=== PATIENT | male | born 1945 | race Caucasian/White ===

== ENCOUNTER 2016-10-11 11:35 | Emergency (ER) | payer MEDICARE ==
[2016-10-11 13:30] VITALS: BP 138/76
--- NOTE | 2016-10-11 13:51 | UC ---
Knee Pain HPI - HPI Summary HPI Summary: complaint of pain in right knee that started 2 days ago yesterday pain increased yesterday constant aching pain at rest and with movement this morning the pain and redness have lessened but still hurts took some ibuprofen with some relief- 800 mg PO Q8 hours dx with gout 3 ywearsa go - has flare up 1-2x year denies fever - History of Current Complaint Chief Complaint: UCLowerExtremity Stated Complaint: RIGHT KNEE PAIN (GOUT) Time Seen by Provider: 10/11/16 13:44 Hx Obtained From: Patient - Allergies/Home Medications Allergies/Adverse Reactions: Allergies Allergy/AdvReac Type Severity Reaction Status Date / Time Codeine AdvReac Mild Nausea Verified 11/10/13 09:14 Home Medications: Home Medications Allopurinol [Zyloprim] 300 mg PO DAILY 10/11/16 [History Confirmed 10/11/16] Atorvastatin* [Lipitor*] 80 mg PO 1700 10/11/16 [History Confirmed 10/11/16] Flunisolide NASAL (NF) [Nasalide NASAL (NF)] 0.025 % NA DAILY 10/11/16 [History Confirmed 10/11/16] Magnesium [Magnesium] 400 mg PO DAILY 10/11/16 [History Confirmed 10/11/16] Pantoprazole Sodium 40 mg PO DAILY 10/11/16 [History Confirmed 10/11/16] Sotalol TAB* [Betapace TAB*] 80 mg PO BID 10/11/16 [History Confirmed 10/11/16] Warfarin TAB(*) [Coumadin TAB(*)] 5 mg PO 1700 10/11/16 [History Confirmed 10/11] PMH/Surg Hx/FS Hx/Imm Hx Previously Healthy: Yes Endocrine History Of: Reports: Dyslipidemia Denies: Diabetes, Thyroid Disease, Hyperthyroidism, Hypothyroidism Cardiovascular History Of: Reports: Cardiac Disorders - Stent placed 5-6 yrs ago , Hypertension Denies: Pacemaker/ICD, Myocardial Infarction, Congestive Heart Failure, Atrial Fibrillation, Deep Vein Thrombosis, Bleeding Disorders Respiratory History Of: Reports: COPD Denies: Asthma, Bronchitis, Pneumonia, Pulmonary Embolism GI/ History Of: Denies: Gastroesophageal Reflux, Ulcer, Gastrointestinal Bleed, Gall Bladder Disease, Kidney Stones, Diverticulitis, Renal Disease, Urosepsis Neurological History Of: Denies: TIA, CVA, Dementia, Seizures, Migraine Psychological History Of: Denies: Anxiety, Depression, Bipolar Disorder, Schizophrenia, Post Traumatic Stress Disorder Cancer History Of: Denies: Lung Cancer, Colorectal Cancer, Breast Cancer, Prostate Cancer, Cervical Cancer Other History Of: Hepatitis C - He will be starting treatment later this month. Negative For: HIV, Hepatitis B, Anticoagulant Therapy - Surgical History Surgical History: Yes Surgery Procedure, Year, and Place: 2 cardiac stents 2011 - Family History Known Family History: Positive: None Negative: Cardiac Disease, Hypertension, Diabetes - Social History Lives: With Family Alcohol Use: Occasionally Substance Use Type: None Smoking Status (MU): Former Smoker Amount Used/How Often: Smoker for 40 year up to 1ppd. Review of Systems Constitutional: Negative Skin: Negative Eyes: Negative ENT: Negative Respiratory: Negative Cardiovascular: Negative Gastrointestinal: Negative Genitourinary: Negative Motor: Negative Neurovascular: Negative Musculoskeletal: Other: - left knee pain Neurological: Negative Psychological: Negative All Other Systems Reviewed And Are Negative: Yes Physical Exam Triage Information Reviewed: Yes Appearance: No Pain Distress, Thin Vital Signs: Initial Vital Signs Temp 98.3 F 10/11/16 13:21 Pulse 77 10/11/16 13:21 Resp 16 10/11/16 13:21 BP 138/76 10/11/16 13:21 Pulse Ox 98 10/11/16 13:21 Vital Signs Reviewed: Yes Eyes: Positive: Conjunctiva Clear ENT: Positive: Pharynx normal, TMs normal Neck: Positive: Supple Respiratory: Positive: Lungs clear, Normal breath sounds, No respiratory distress Cardiovascular: Positive: RRR, No Murmur, Pulses Normal Abdomen Description: Positive: Nontender, Soft Bowel Sounds: Positive: Present Musculoskeletal: Positive: Other: - Left knee- above patella and anterior side of knee with some erythema and warmth- no open areas no instabiltiy of joint no edema Neurological: Positive: Alert Psychological Exam: Normal Skin Exam: Normal Knee Pain Course/Dx - Course Course Of Treatment: exam completed -established dx of gout- afebrile, no trauma or instability. acute attack will treat with colchicine d/t warfarin therapy. followup with PCP in 2 days or if no improvement - Differential Dx/Diagnosis Differential Diagnosis/HQI/PQRI: Gout, Infection, Sprain Provider Diagnoses: gout right knee Discharge - Discharge Plan Condition: Stable Disposition: HOME Prescriptions: Colchicine* [Colcrys*] 0.6 mg PO DAILY #7 tab Patient Education Materials: Gout (ED), Low Purine Diet (ED) Referrals: Candy Rivas MD [Primary Care Provider] - Additional Instructions: Start medication as directed Please review your discharge instructions. If your symptoms do not improve please call your primary care provider or return to urgent care
== END 2016-10-11 14:18 | disposition home or self-care (01) ==
LOC: UCCORT 11:35
DX: M10.9 Gout, unspecified (principal); I10 Essential (primary) hypertension; E78.5 Hyperlipidemia, unspecified; J44.9 Chronic obstructive pulmonary disease, unspecified; Z88.5 Allergy status to narcotic agent; Z87.891 Personal history of nicotine dependence
CPT/HCPCS: 99212; G0463

== ENCOUNTER 2016-10-30 10:17 | Emergency (ER) | payer MEDICARE ==
[2016-10-30 12:58] VITALS: BP 131/73
--- NOTE | 2016-10-30 13:22 | UC ---
Respiratory Complaint HPI - HPI Summary HPI Summary: pt c/o worsening cough, nasal congestion, chills and fatigue X 1 week. Has history of COPD - History of Current Complaint Chief Complaint: UCRespiratory Stated Complaint: COUGH,CONGESTION Time Seen by Provider: 10/30/16 12:50 Hx Obtained From: Patient Onset/Duration: Gradual Onset, Lasting Days Timing: Constant Severity Initially: Mild Severity Currently: Mild Pain Intensity: 0 Pain Scale Used: 0-10 Numeric Character: Cough: Productive - in morning Aggravating Factors: Deep Breaths, Recumbent Position Associated Signs And Symptoms: Positive: URI, Nasal Congestion - Risk Factors Pseudomonas Risk Factors: Chronic Lung Disease - Allergies/Home Medications Allergies/Adverse Reactions: Allergies Allergy/AdvReac Type Severity Reaction Status Date / Time Codeine AdvReac Mild Nausea Verified 10/30/16 12:50 PMH/Surg Hx/FS Hx/Imm Hx Previously Healthy: No - see pmh Endocrine History Of: Reports: Dyslipidemia Denies: Diabetes, Thyroid Disease, Hyperthyroidism, Hypothyroidism Cardiovascular History Of: Reports: Cardiac Disorders - Stent placed 5-6 yrs ago , Hypertension Denies: Pacemaker/ICD, Myocardial Infarction, Congestive Heart Failure, Atrial Fibrillation, Deep Vein Thrombosis, Bleeding Disorders Respiratory History Of: Reports: COPD Denies: Asthma, Bronchitis, Pneumonia, Pulmonary Embolism GI/ History Of: Denies: Gastroesophageal Reflux, Ulcer, Gastrointestinal Bleed, Gall Bladder Disease, Kidney Stones, Diverticulitis, Renal Disease, Urosepsis Neurological History Of: Denies: TIA, CVA, Dementia, Seizures, Migraine Psychological History Of: Denies: Anxiety, Depression, Bipolar Disorder, Schizophrenia, Post Traumatic Stress Disorder Cancer History Of: Denies: Lung Cancer, Colorectal Cancer, Breast Cancer, Prostate Cancer, Cervical Cancer Other History Of: Hepatitis C - He will be starting treatment later this month. Negative For: HIV, Hepatitis B, Anticoagulant Therapy - Surgical History Surgical History: Yes Surgery Procedure, Year, and Place: 2 cardiac stents 2011 - Family History Known Family History: Negative: Cardiac Disease, Hypertension, Diabetes - Social History Lives: With Family Alcohol Use: Occasionally Substance Use Type: None Smoking Status (MU): Former Smoker Amount Used/How Often: Smoker for 40 year up to 1ppd. When Did the Patient Quit Smoking/Using Tobacco: 1999 - Immunization History Most Recent Influenza Vaccination: 2016 Review of Systems Constitutional: Chills, Fatigue Skin: Negative Eyes: Negative ENT: Other - nasal congestion, pnd Respiratory: Cough Cardiovascular: Negative Gastrointestinal: Negative Genitourinary: Negative Motor: Negative Neurovascular: Negative Musculoskeletal: Negative Neurological: Negative Psychological: Negative All Other Systems Reviewed And Are Negative: Yes Physical Exam Triage Information Reviewed: Yes Appearance: Well-Appearing Vital Signs: Initial Vital Signs Temp 99.7 F 10/30/16 12:53 Pulse 101 10/30/16 12:53 Resp 20 10/30/16 12:53 BP 131/73 10/30/16 12:53 Pulse Ox 93 10/30/16 12:53 Vital Signs Reviewed: Yes ENT Exam: Other ENT: Positive: Nasal congestion Neck exam: Normal Respiratory Exam: Other Respiratory: Positive: Decreased breath sounds - bialtaeral bases Cardiovascular Exam: Normal Musculoskeletal Exam: Normal Neurological Exam: Normal Psychological Exam: Normal Skin Exam: Normal UC Diagnostic Evaluation - Laboratory O2 Sat by Pulse Oximetry: 93 Respiratory Course/Dx - Differential Dx/Diagnosis Differential Diagnosis/HQI/PQRI: Bronchitis, Influenza, Other - pneumonia Provider Diagnoses: bronchitis Discharge - Discharge Plan Condition: Stable Disposition: HOME Prescriptions: Azithromycin TAB* [Zithromax TAB (Z-BRODERICK) 250 mg #6 tabs] 2 tab PO .TODAY, THEN 1 DAILY #1 broderick predniSONE TAB* [Deltasone TAB*] 40 mg PO DAILY #8 tab Patient Education Materials: Acute Bronchitis (ED) Referrals: Candy Rivas MD [Primary Care Provider] -
== END 2016-10-30 13:15 | disposition home or self-care (01) ==
LOC: UCCORT 10:17
DX: J20.9 Acute bronchitis, unspecified (principal); R09.81 Nasal congestion; J44.9 Chronic obstructive pulmonary disease, unspecified; E78.5 Hyperlipidemia, unspecified; Z87.891 Personal history of nicotine dependence; Z88.5 Allergy status to narcotic agent
CPT/HCPCS: 99212; G0463

== ENCOUNTER 2017-08-24 17:14 | Emergency (ER) | payer MEDICARE ==
--- NOTE | 2017-08-24 18:25 | UC ---
Respiratory Complaint HPI - HPI Summary HPI Summary: 72 YEAR OLD MALE PRESENTS WITH SINUS CONGESTION AND COUGH. - History of Current Complaint Stated Complaint: COUGH/HEADACHE Time Seen by Provider: 08/24/17 18:24 Hx Obtained From: Patient Onset/Duration: Sudden Onset Severity Initially: Moderate Severity Currently: Moderate Pain Scale Used: 0-10 Numeric - 5 Associated Signs And Symptoms: Positive: Wheezing - Allergies/Home Medications Allergies/Adverse Reactions: Allergies Allergy/AdvReac Type Severity Reaction Status Date / Time Codeine AdvReac Mild Vomiting Verified 08/24/17 19:06 Home Medications: Home Medications Losartan TAB* [Cozaar TAB*] 50 mg PO DAILY 08/24/17 [History Confirmed 08/24/17] PMH/Surg Hx/FS Hx/Imm Hx Other History Of: Hepatitis C - He will be starting treatment later this month. Negative For: HIV, Hepatitis B, Anticoagulant Therapy - Surgical History Surgical History: Yes Surgery Procedure, Year, and Place: 2 cardiac stents 2011 - Family History Known Family History: Negative: Cardiac Disease, Hypertension, Diabetes - Social History Alcohol Use: Occasionally Substance Use Type: None Smoking Status (MU): Former Smoker Amount Used/How Often: Smoker for 40 year up to 1ppd. When Did the Patient Quit Smoking/Using Tobacco: 1999 - Immunization History Most Recent Influenza Vaccination: 2015 Review of Systems Constitutional: Negative Skin: Negative Eyes: Negative ENT: Negative Respiratory: Shortness Of Breath, Cough Cardiovascular: Negative Gastrointestinal: Negative Genitourinary: Negative Motor: Negative Neurovascular: Negative Musculoskeletal: Negative Neurological: Negative Psychological: Negative All Other Systems Reviewed And Are Negative: Yes Physical Exam Triage Information Reviewed: Yes Vital Signs Reviewed: Yes Eye Exam: Normal ENT: Positive: Pharyngeal erythema, Nasal congestion, Nasal drainage Dental Exam: Normal Neck exam: Normal Neck: Positive: 1 Respiratory: Positive: Rhonchi, Wheezing Cardiovascular Exam: Normal Abdominal Exam: Normal Musculoskeletal Exam: Normal Neurological Exam: Normal Psychological Exam: Normal Skin Exam: Normal Respiratory Course/Dx - Differential Dx/Diagnosis Provider Diagnoses: SINUSITIS. COUGH Discharge - Discharge Plan Condition: Stable Disposition: HOME Prescriptions: Amoxicillin/Clavulanate TAB* [Augmentin TAB 875*] 875 mg PO BID #20 tab Benzonatate CAP* [Tessalon 100 MG CAP*] 100 mg PO TID PRN #30 cap PRN Reason: Cough Guaifenesin-Codeine [Cheratussin AC] 1 teasp PO Q8H PRN #120 ml MDD 15 ml PRN Reason: Cough LoraTADine TAB(NF) [Claritin 10 MG TAB(NF)] 10 mg PO DAILY #30 tab Patient Education Materials: Sinusitis (ED), Acute Cough (ED) Referrals: Candy Rivas MD [Primary Care Provider] -
[2017-08-24 19:05] VITALS: BP 155/68
== END 2017-08-24 19:30 | disposition home or self-care (01) ==
LOC: UCCORT 17:14
DX: J32.9 Chronic sinusitis, unspecified (principal); R05 Cough; Z95.5 Presence of coronary angioplasty implant and graft; Z88.5 Allergy status to narcotic agent; Z87.891 Personal history of nicotine dependence
CPT/HCPCS: 99212; G0463

== ENCOUNTER 2018-09-09 10:10 | Emergency (ER) | payer MEDICARE ==
[2018-09-09 10:55] VITALS: BP 143/88
--- NOTE | 2018-09-09 11:16 | UC ---
Lower Extremity/Ankle HPI - HPI Summary HPI Summary: Left great toe pain for about two weeks. Hx of gout. This feels simmilar to prior. He had worsening swelling and this is improved now. No prior kidney disease. - History of Current Complaint Chief Complaint: UCLowerExtremity Stated Complaint: LEFT FOOT COMPLAINT Time Seen by Provider: 09/09/18 11:00 Hx Obtained From: Patient Onset/Duration: Gradual Onset, Lasting Weeks Severity Initially: Moderate Severity Currently: Moderate Pain Intensity: 5 Aggravating Factor(s): Standing, Ambulation Alleviating Factor(s): Rest Able to Bear Weight: Yes - Allergies/Home Medications Allergies/Adverse Reactions: Allergies Allergy/AdvReac Type Severity Reaction Status Date / Time codeine Allergy Mild Vomiting Verified 09/09/18 10:56 PMH/Surg Hx/FS Hx/Imm Hx Previously Healthy: No - Afib. gout. Prior records reviewed and no recent labs but gfr wnl 2013. Cardiovascular History: Atrial Fibrillation Other History Of: Hepatitis C - He will be starting treatment later this month. Negative For: HIV, Hepatitis B, Anticoagulant Therapy - Surgical History Surgical History: Yes Surgery Procedure, Year, and Place: 2 cardiac stents 2011; right wrist fxs - Family History Known Family History: Negative: Cardiac Disease, Hypertension, Diabetes - Social History Alcohol Use: Occasionally Substance Use Type: None Smoking Status (MU): Former Smoker Amount Used/How Often: Smoker for 40 year up to 1ppd. When Did the Patient Quit Smoking/Using Tobacco: 1999 - Immunization History Most Recent Influenza Vaccination: 2015 Review of Systems All Other Systems Reviewed And Are Negative: Yes Musculoskeletal: Positive: Arthralgia Is Patient Immunocompromised?: No Physical Exam Triage Information Reviewed: Yes Appearance: Well-Appearing, No Pain Distress, Well-Nourished Vital Signs: Initial Vital Signs Temp 96.8 F 09/09/18 10:49 Pulse 68 09/09/18 10:49 Resp 20 09/09/18 10:49 BP 143/88 09/09/18 10:49 Pulse Ox 95 09/09/18 10:49 Vital Signs Reviewed: Yes Eye Exam: Normal Eyes: Positive: Conjunctiva Clear ENT: Positive: Normal ENT inspection Neck: Positive: Supple. Negative: Nuchal Rigidity Respiratory: Positive: No respiratory distress, No accessory muscle use. Negative: Respiratory distress Cardiovascular: Positive: Brisk Capillary Refill Abdomen Description: Positive: No Organomegaly, Soft. Negative: Distended, Guarding Musculoskeletal Exam: Other - left great MTP and toe tenderness with some swelling. No streaking. Not hot but it is warm and pink. Neurological: Positive: Alert, Muscle Tone Normal. Negative: Fatigued Psychological: Positive: Age Appropriate Behavior Lower Extremity Course/Dx - Course Course Of Treatment: No signs of infection. he has been taking increased allopurinol lately but did not take it prophylactically. We explained the role of allopurinol as a daily preventative med. We will use only two colchicine and them steroids. We will avoid nsaids otherwise. - Differential Dx/Diagnosis Provider Diagnosis: Gout attack Discharge - Sign-Out/Discharge Documenting (check all that apply): Patient Departure All imaging exams completed and their final reports reviewed: No Studies - Discharge Plan Condition: Good Disposition: HOME Prescriptions: Colchicine* [Colcrys*] 0.6 mg PO Q4HR #2 tab methylPREDNISolone [Medrol] 4 mg PO .SEE BRODERICK INSTRUCTION #21 [email or web address] Patient Education Materials: Gout (ED) Referrals: Candy Rivas MD [Primary Care Provider] - If Needed - Billing Disposition and Condition Condition: GOOD Disposition: Home
== END 2018-09-09 11:21 | disposition home or self-care (01) ==
LOC: UCCORT 10:10
DX: M10.9 Gout, unspecified (principal); Z88.5 Allergy status to narcotic agent; Z87.891 Personal history of nicotine dependence
CPT/HCPCS: 99212; G0463

== ENCOUNTER 2018-09-27 11:30 | Emergency (ER) | payer MEDICARE ==
[2018-09-27 15:12] VITALS: BP 116/67
[2018-09-27] MEDS ORDERED: predniSONE TAB* 20 MG PO ONE (15:25)
--- NOTE | 2018-09-27 15:31 | UC ---
Lower Extremity/Ankle HPI - HPI Summary HPI Summary: The patient is a 73-year-old male has been dealing with gout in his left great toe intermittently for the past 7 weeks. States that last night it hurt to just have the sheet touches left great toe. Currently the pain is only about a 3 but at times it can go up to a 10. - History of Current Complaint Chief Complaint: UCLowerExtremity Stated Complaint: LEFT FOOT COMPLAINT Time Seen by Provider: 09/27/18 15:14 Hx Obtained From: Patient Onset/Duration: Gradual Onset, Lasting Weeks Severity Initially: Mild Severity Currently: Mild Pain Intensity: 3 Pain Scale Used: 0-10 Numeric Aggravating Factor(s): Standing, Ambulation Alleviating Factor(s): Rest Able to Bear Weight: Yes Feet (Multiple View): 1 - red/painful/tender - Allergies/Home Medications Allergies/Adverse Reactions: Allergies Allergy/AdvReac Type Severity Reaction Status Date / Time codeine Allergy Mild Vomiting Verified 09/27/18 15:06 PMH/Surg Hx/FS Hx/Imm Hx Previously Healthy: Yes Cardiovascular History: Cardiac Disease, Hypertension Respiratory History: COPD Other History Of: Hepatitis C - He will be starting treatment later this month. Negative For: HIV, Hepatitis B, Anticoagulant Therapy - Surgical History Surgical History: Yes Surgery Procedure, Year, and Place: 2 cardiac stents 2011; right wrist fxs - Family History Known Family History: Negative: Cardiac Disease, Hypertension, Diabetes - Social History Alcohol Use: Occasionally Substance Use Type: None Smoking Status (MU): Former Smoker Amount Used/How Often: Smoker for 40 year up to 1ppd. When Did the Patient Quit Smoking/Using Tobacco: 1999 - Immunization History Most Recent Influenza Vaccination: 2016 Review of Systems All Other Systems Reviewed And Are Negative: Yes Constitutional: Positive: Negative Skin: Positive: Negative Eyes: Positive: Negative ENT: Positive: Negative Respiratory: Positive: Negative Cardiovascular: Positive: Negative Gastrointestinal: Positive: Negative Genitourinary: Positive: Negative Motor: Positive: Negative Neurovascular: Positive: Negative Musculoskeletal: Positive: Arthralgia Neurological: Positive: Negative Psychological: Positive: Negative Physical Exam Triage Information Reviewed: Yes Appearance: Well-Appearing, No Pain Distress, Well-Nourished Vital Signs: Initial Vital Signs Temp 97 F 09/27/18 15:06 Pulse 59 09/27/18 15:06 Resp 16 09/27/18 15:06 BP 116/67 09/27/18 15:06 Pulse Ox 99 09/27/18 15:06 Vital Signs Reviewed: Yes Eyes: Positive: Conjunctiva Clear ENT: Positive: Hearing grossly normal, Uvula midline. Negative: Nasal congestion, Nasal drainage, Trismus, Muffled voice Neck: Positive: Supple Respiratory: Positive: Lungs clear, Normal breath sounds, No respiratory distress, No accessory muscle use Cardiovascular: Positive: RRR, No Murmur Musculoskeletal: Positive: Other: - see image Psychological Exam: Normal Skin Exam: Normal Lower Extremity Course/Dx - Differential Dx/Diagnosis Provider Diagnosis: Gout Discharge - Sign-Out/Discharge Documenting (check all that apply): Patient Departure All imaging exams completed and their final reports reviewed: No Studies - Discharge Plan Condition: Stable Disposition: HOME Prescriptions: predniSONE [Prednisone 20 MG TAB] 60 mg PO DAILY #6 tab Patient Education Materials: Low Purine Diet (ED), Gout (ED) Referrals: Candy Rivas MD [Primary Care Provider] - As Soon As Possible Additional Instructions: post op shoe see your MD early next week for recheck - Billing Disposition and Condition Condition: STABLE Disposition: Home
== END 2018-09-27 15:58 | disposition home or self-care (01) ==
LOC: UCCORT 11:30
DX: M10.9 Gout, unspecified (principal); I10 Essential (primary) hypertension; Z88.5 Allergy status to narcotic agent; Z87.891 Personal history of nicotine dependence
CPT/HCPCS: 99213; G0463; J7512

== ENCOUNTER 2019-09-24 09:34 | Emergency (ER) | payer MEDICARE ==
[2019-09-24 10:22] VITALS: BP 97/80
--- NOTE | 2019-09-24 10:40 | ED ---
Lower Extremity - HPI Summary HPI Summary: 74 yr old male with the complaint of left ankle pain, and right heel pain. The patient has a history of gout arthritis. 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 He presents here with pain and some mild swelling to the medial left ankle and the right heel. He has mild redness also. The patient states that over the past week he has had more seafood, shrimp and also alcohol over the Holiday season. She states he feels this has exacerbated his gout. His onset of symptoms was 5 days ago. He has no fever or chills. No other complaints. - History of Current Complaint Chief Complaint: UCLowerExtremity Stated Complaint: LT ANKLE PAIN Time Seen by Provider: 09/24/19 10:23 Pain Intensity: 7 - Allergies/Home Medications Allergies/Adverse Reactions: Allergies Allergy/AdvReac Type Severity Reaction Status Date / Time codeine Allergy Mild Vomiting Verified 09/24/19 10:11 Home Medications: Home Medications Apixaban* [Eliquis*] 5 mg PO DAILY 09/24/19 [History Confirmed 09/24/19] PMH/Surg Hx/FS Hx/Imm Hx Endocrine/Hematology History: Denies: Hx Anticoagulant Therapy, Hx Diabetes, Hx Thyroid Disease Cardiovascular History: Reports: Hx Hypertension Denies: Hx Congestive Heart Failure, Hx Deep Vein Thrombosis, Hx Myocardial Infarction, Hx Pacemaker/ICD Respiratory History: Reports: Hx Chronic Obstructive Pulmonary Disease (COPD) Denies: Hx Asthma, Hx Lung Cancer, Hx Pneumonia, Hx Pulmonary Embolism GI History: Denies: Hx Gall Bladder Disease, Hx Gastrointestinal Bleed, Hx Ulcer, Hx Urosepsis History: Denies: Hx Kidney Stones, Hx Renal Disease Neurological History: Denies: Hx Dementia, Hx Migraine, Hx Seizures, Hx Transient Ischemic Attacks (TIA) Psychiatric History: Denies: Hx Anxiety, Hx Depression, Hx Schizophrenia, Hx Bipolar Disorder - Surgical History Surgery Procedure, Year, and Place: 2 cardiac stents 2012; right wrist fxs Infectious Disease History: No Infectious Disease History: Reports: Hx Hepatitis - C and tx 2014 Denies: Traveled Outside the [place] in Last 30 Days - Family History Known Family History: Negative: Cardiac Disease, Hypertension, Diabetes - Social History Occupation: Retired Alcohol Use: Occasionally Substance Use Type: Reports: None Smoking Status (MU): Former Smoker Amount Used/How Often: Smoker for 40 year up to 1ppd. Review of Systems Constitutional: Negative Positive: Other - swelling redness, pain left ankle and right heel. All Other Systems Reviewed And Are Negative: Yes Physical Exam Triage Information Reviewed: Yes Vital Signs On Initial Exam: Initial Vitals Temp Pulse Resp BP Pulse Ox 97.4 F 89 16 97/80 95 09/24/19 10:15 09/24/19 10:15 09/24/19 10:15 09/24/19 10:15 09/24/19 10:15 Vital Signs Reviewed: Yes Appearance: Positive: Well-Appearing, No Pain Distress Skin: Positive: Warm, Skin Color Reflects Adequate Perfusion Head/Face: Positive: Normal Head/Face Inspection Eyes: Positive: EOMI ENT: Positive: Normal ENT inspection Neck: Positive: Nontender Respiratory/Lung Sounds: Positive: Clear to Auscultation, Breath Sounds Present Cardiovascular: Positive: RRR, Pulses are Symmetrical in both Upper and Lower Extremities - good DP and PT pulses in the ankles/ feet bilateral. Abdomen Description: Negative: Distended Musculoskeletal: Positive: Other - left ankle with mild tenderness and erythema with STS over the medial area. Mild tenderness over the right heel area. Neurological: Positive: Sensory/Motor Intact, Alert, Oriented to Person Place, Time, CN Intact II-III, Normal Gait, Speech Normal Psychiatric: Positive: Normal - [place] Coma Scale Best Eye Response: 4 - Spontaneous Best Motor Response: 6 - Obeys Commands Best Verbal Response: 5 - Oriented Coma Scale Total: 15 Diagnostics - Vital Signs Vital Signs Temp Pulse Resp BP Pulse Ox 09/24/19 10:15 97.4 F 89 16 97/80 95 - Laboratory Lab Statement: Any lab studies that have been ordered have been reviewed, and results considered in the medical decision making process. Lower Extremity Course/Dx - Course Course Of Treatment: Non toxic appearing male in no distress, with history of high uric acid. He is on allopurinol. Adding colchicine. FU with PMD. - Diagnoses Provider Diagnoses: Gout Discharge ED - Sign-Out/Discharge Documenting (check all that apply): Patient Departure All imaging exams completed and their final reports reviewed: No Studies - Discharge Plan Condition: Good Disposition: HOME Prescriptions: Colchicine* [Colcrys*] 0.6 mg PO DAILY #14 tab Patient Education Materials: Gout (ED) Referrals: Candy Rivas MD [Primary Care Provider] - 2 Days - Billing Disposition and Condition Condition: GOOD Disposition: Home
== END 2019-09-24 10:47 | disposition home or self-care (01) ==
LOC: UCCORT 09:34
DX: M10.9 Gout, unspecified (principal); J44.9 Chronic obstructive pulmonary disease, unspecified; Z87.891 Personal history of nicotine dependence; Z88.5 Allergy status to narcotic agent
CPT/HCPCS: 99212; G0463